=== PATIENT | male | born 1975 | race Caucasian/White ===

== ENCOUNTER 2017-03-01 08:45 | Day surgery (SDC) | payer BC ==
[~2017-03-01 08:45] MED LIST: Buffered Lidocaine 0.9% SYRIN* 5 ML/SYR SYRINGE INTRADERM ONE; Buffered Lidocaine 0.9% SYRIN* 5 ML/SYR SYRINGE ONE; Cyclopentolate 1% OPTH.SOL* 2 ML BTL ONE; Famotidine IV* 10 MG/ML 2 ML (20 mg) IV ONE; Flurbiprofen 0.03% OPTH.SOL* 2.5 ML BTL ONE; Ketorolac INJ* 30 MG/ML 1 ML VIAL ONE; Lidocaine 1% MPF* 2 ML VIAL ONE; Lidocaine 2% PF * 5 ML VIAL ONE; Midazolam* 1 MG/ML 5 ML VIAL (5 MG) ONE; Neomycin/Polymy/Dex OPHTH.OIN* 3.5 GM ONE; Ondansetron INJ* 2 MG/ML VIAL ONE; Phenylephrine 2.5% OPTH.SOL* 2 ML BTL ONE; Povidone Iodine 5% OPTH* 30 ML BTL ONE; Propofol* 10 MG/ML 20 ML BTL IV PUSH ONE; Tetracaine 0.5% OPTH.SOL 4 ML* 1 DROP BTL ONE; Tropicamide 1% OPTH.SOL* BTL ONE; acetaZOLAMIDE TAB* 250 MG ONE; fentaNYL* 50 MCG/ML 2 ML VIAL (100 MCG VIAL) ONE
[2017-03-01] MEDS ORDERED: Buffered Lidocaine 0.9% SYRIN* 5 ML/SYR SYRINGE ONE (08:47)
[2017-03-01] MEDS ORDERED: Famotidine IV* 10 MG/ML 2 ML (20 mg) ONE (08:47)
[2017-03-01] MEDS ORDERED: HYDROmorphone* 1 MG/ML 1 ML SYR IV PRN (08:52)
[2017-03-01] MEDS ORDERED: Acetaminophen TAB* 325 MG PO PRN (08:52)
[2017-03-01] MEDS ORDERED: Bupivacaine 0.25% SDV* 30 ML ONE ×2 (09:45→10:31)
[2017-03-01] MEDS ORDERED: Propofol* 10 MG/ML 20 ML BTL IV PUSH ONE (10:29)
[2017-03-01 10:52] VITALS: BP 118/73
--- NOTE | 2017-03-02 02:42 | OP ---
DATE OF OPERATION: 03/01/17 - [facility] DATE OF : 77 SURGEON: Neel Bloom MD EMERGENCY MEDICINE PHYSICIAN: ALDAIR Alejandro ANESTHESIOLOGIST: Dr. Chowdhury. ANESTHESIA: Local MAC. PRE-OP DIAGNOSIS: Left carpal tunnel syndrome. POST-OP DIAGNOSIS: Left carpal tunnel syndrome. OPERATIVE PROCEDURE: Left open carpal tunnel release. INDICATIONS: Paul has had progressive carpal tunnel syndrome over the last 3 years. He has been trying braces and they proved inadequate. He had electrodiagnostic studies, which confirmed moderate disease. We talked about risks and benefits. He elected to proceed. ESTIMATED BLOOD LOSS: 2 mL. COMPLICATIONS: None. FINDINGS: As expected. DESCRIPTION OF PROCEDURE: Paul was seen in the preoperative holding area. The correct side and site of the procedure were identified. We came back to the operating room where the arm was prepped and draped in the usual fashion and formal time-out was performed. I began by making a 2 to 3 cm incision in the standard location for an open carpal tunnel release. Dissection was carried down through the subcutaneous tissue and relatively thick palmar fascia. This was released to expose the transverse fibers of the transverse carpal ligament. The ligament was released just off the radial aspect of the hook of the hamate starting distally and continuing proximally. Proximally, the fascia and subcutaneous tissue was released and retracted volarly and ulnarly. Under direct visualization, the tenotomy scissors were used to release the rest of the transverse carpal ligament just off the ulnar aspect of the palmaris longus tendon to a level of several centimeters proximal to the wrist flexion crease. I then came back distally and release some of the palmar fascia, which was quite thick and robust. This really opened things up very nicely. Therefore, I irrigated out the wound. Skin was closed with 4-0 nylon suture. I went ahead and injected a little bit more 0.25% Marcaine prior to placing the dressing. I had to anesthetize the operative area with 0.25% plain Marcaine prior to making skin incision and prior to prepping and draping the arm. Tourniquet was deflated and hand pinked up immediately. The wound was dressed with Xeroform, 4x4, sterile Webril and an James bandage. He was taken to recovery room in stable condition. [id number]/[facility] #: [id number]
== END 2017-03-01 11:21 | disposition home or self-care (01) ==
LOC: OREAST 08:45
PROVIDERS: ATTEND Orthopaedic Surgery Hand Surgery
DX: G56.02 Carpal tunnel syndrome, left upper limb (principal); I10 Essential (primary) hypertension; G47.33 Obstructive sleep apnea (adult) (pediatric)
CPT/HCPCS: A9270-GY; J1885; J2250; J2405; J2704; J3010

== ENCOUNTER 2021-11-27 17:09 | Inpatient (IN) ==
[2021-11-27 18:15] LABS: ABS Basophils 0.1 10^3/ul (0-0.2); ABS Eosinophils 0.3 10^3/ul (0-0.6); ABS Lymphocytes 2.1 10^3/ul (1.0-4.8); ABS Monocytes 0.7 10^3/ul (0-0.8); ABS Neutrophils 4.2 10^3/ul (1.5-7.7); Eosinophil % 4.4 %; Hematocrit 43 % (42-52); Lymphocyte % 28.1 %; Mean Corpuscular HGB Conc 35 g/dL (31-36); Mean Corpuscular Hemoglobin 30 pg (27-31); Mean Corpuscular Volume 85 fL (80-94); Mean Platelet Volume 7.5 fL (7.4-10.4); Nucleated Red Blood Cells % 0.1; Platelet Count 217 10^3/uL (150-450); Red Blood Count 5.02 10^6 /uL (4.18-5.48); Red Cell Distribution Width 14 % (10-15); White Blood Count 7.4 10^3/uL (3.5-10.8)
[2021-11-27 19:04] LABS: ALT 25 U/L (7-52); AST 19 U/L (13-39); Acetaminophen < 15 mcg/mL; Albumin 4.2 g/dL (3.2-5.2); Albumin/Globulin Ratio 1.8 (1-3); Alcohol, S < 13 mg/dL (<13); Alkaline Phosphatase 77 U/L (35-149); Anion Gap 6 mmol/L (2-11); Blood Urea Nitrogen 12 mg/dL (6-24); CO2 Carbon Dioxide 31 mmol/L (22-32); Calcium 9.4 mg/dL (8.6-10.3); Chloride 100 mmol/L (101-111); Globulin 2.4 g/dL (2-4); Glucose 83 mg/dL (70-100); Potassium 4.1 mmol/L (3.5-5.0); Salicylate < 2.50 mg/dL (<30); Sodium 137 mmol/L (135-145); Total Protein 6.6 g/dL (6.4-8.9); eGFR CKD-EPI 108.1 (>60)
[2021-11-27 19:16] LABS: TSH Ultra Thyroid Stim Horm 2.07 mcIU/mL (0.34-5.60)
[2021-11-27 19:41] LABS: Urine Appearance Clear; Urine Bilirubin Negative (Negative); Urine Blood Negative (Negative); Urine Color Straw; Urine Glucose Negative (Negative); Urine Ketones Negative (Negative); Urine Nitrite Negative (Negative); Urine Protein Negative (Negative); Urine Specific Gravity 1.008 (1.002-1.030); Urine Urobilinogen Negative (Negative)
[2021-11-27 19:58] LABS: Urine Benzodiazepine Screen None Detected (None Detect); Urine Cannabinoids Screen Presumptive Positive (None Detect); Urine Opiates Screen None Detected (None Detect)
[2021-11-28] MEDS ORDERED: Al Hydrox/Mg Hydrox/Simet LIQ 30 ML UDC PO PRN (00:27)
[2021-11-28] MEDS: Multivitamins/Minerals TAB PO SCH (09:29)
[2021-11-28 14:55] LABS: Vitamin B12 389 pg/mL (180-914)
[2021-11-29 08:39] LABS: HDL Cholesterol 39.1 mg/dL
[2021-11-29] MEDS: Multivitamins/Minerals TAB PO SCH (09:17)
[2021-11-30] MEDS: Multivitamins/Minerals TAB PO SCH (11:31)
[2021-12-01] MEDS: Multivitamins/Minerals TAB PO SCH (08:21)
[2021-12-02] MEDS: Multivitamins/Minerals TAB PO SCH (08:53)
[2021-12-03] MEDS: Multivitamins/Minerals TAB PO SCH (09:06)
[2021-12-04 08:46] VITALS: BP 124/75
[2021-12-04] MEDS: Multivitamins/Minerals TAB PO SCH (09:46)
== END 2021-12-04 16:30 | disposition home or self-care (01) | DRG 755 ==
LOC: ED 17:09 → BSU 21:45
PROVIDERS: ADMIT Psychiatry & Neurology Psychiatry; ATTEND Psychiatry & Neurology Psychiatry